=== PATIENT | male | born 1990 | race Caucasian/White ===

== ENCOUNTER 2017-01-27 16:14 | Emergency (ER) | payer OTHER ==
[2017-01-27 17:13] LABS: CALCIUM 9.2 mg/dL (8.5-10.1); CARBON DIOXIDE 25.7 mmol/L (21-32); CHLORIDE SERUM 99 mmol/L (98-107); GFR1 > 60 mL/min; GLUCOSE SERUM 107 mg/dL (74-106); POTASSIUM SERUM 3.6 mmol/L (3.5-5.1); SODIUM SERUM 136 mmol/L (136-145)
[2017-01-27 17:18] LABS: ALBUMIN 3.4 g/dL (3.4-5.0); ALKALINE PHOSPHATASE 73 U/L (46-116); ALT/SGPT 30 U/L (16-63); AST/SGOT 22 U/L (15-37); BILIRUBIN TOTAL 0.75 mg/dL (0.20-1.00)
[2017-01-27 17:19] LABS: TOTAL PROTEIN, SERUM 8.4 g/dL (6.4-8.2)
[2017-01-27 17:20] LABS: PLATELET COUNT 216 x10^3mcL (130-400)
[2017-01-27 17:57] LABS: BAND NEUTROPHIL 8 % (0-10); BASOPHIL 0 % (0-2); MONOCYTE 9 % (0-7); SEGMENTED NEUTROPHILS 72 % (37-75)
[2017-01-27 18:40] VITALS: BP 126/80
== END 2017-01-27 18:40 | disposition home or self-care (01) ==
LOC: ED 16:14
PROVIDERS: Emergency Medicine
DX: J02.9 Acute pharyngitis, unspecified (principal); R51 Headache; R11.2 Nausea with vomiting, unspecified
CPT/HCPCS: 86788; 86789; J0295; J3010; Q0162

== ENCOUNTER 2017-02-03 11:29 | Emergency (ER) | payer OTHER ==
[~2017-02-03] VITALS: Ht 180.3 cm; Wt 92.1 kg
[2017-02-03 14:27] LABS: BASOPHIL % 0.3 % (0-2); RED CELL DISTRIBUTION WIDTH 12.9 % (11.5-14.5)
[2017-02-03 14:33] LABS: CALCIUM 9.5 mg/dL (8.5-10.1); CARBON DIOXIDE 28.4 mmol/L (21-32); CHLORIDE SERUM 103 mmol/L (98-107); CREATININE SERUM 0.9 mg/dL (0.7-1.3); GFR1 > 60 mL/min; GLUCOSE SERUM 102 mg/dL (74-106); POTASSIUM SERUM 3.4 mmol/L (3.5-5.1); SODIUM SERUM 139 mmol/L (136-145)
[2017-02-03 14:38] LABS: ALKALINE PHOSPHATASE 67 U/L (46-116); ALT/SGPT 34 U/L (16-63); AMYLASE 85 U/L (25-115); AST/SGOT 28 U/L (15-37); BILIRUBIN TOTAL 0.53 mg/dL (0.20-1.00); LIPASE 135 IU/L (73-393)
[2017-02-03 14:49] LABS: ALBUMIN 3.2 g/dL (3.4-5.0); TOTAL PROTEIN, SERUM 8.7 g/dL (6.4-8.2)
[2017-02-03 14:54] LABS: PLATELET COUNT 441 x10^3mcL (130-400)
[2017-02-03 15:33] VITALS: BP 137/82
== END 2017-02-03 15:33 | disposition home or self-care (01) ==
LOC: ED 11:29
PROVIDERS: Emergency Medicine
DX: K80.50 Calculus of bile duct without cholangitis or cholecystitis without obstruction (principal)
CPT/HCPCS: 83880; J1885

== ENCOUNTER 2017-04-23 21:48 | Inpatient (IN) | payer OTHER ==
[~2017-04-23] VITALS: Ht 180.3 cm; Wt 93.9 kg
--- NOTE | 2017-04-23 22:22 | NUR ---
AWAITING BED AVAIL. NO S/S OF RESP DISTRESS. PT IS FULLY AAOX4 WITH CLEAR SKIN SIGNS
--- NOTE | 2017-04-23 23:01 | NUR ---
REC'D A 26/M IN [facility]TH[facility] WITH C/O CHEST PAIN AND SOB SINCE WEDNESDAY. PT STS THE SOB STARTED FIRST THEN VOMITED, AND THEN CHEST PAIN. PT DESCRIBES THE PAIN CONSTANT, PRESSURE LIKE, MID-STERNAL AND NONRADIATING. PT STARTED A NEW LABOR INTENSIVE JOB WEDNESDAY AND THOUGHT THE PAIN WOULD GO AWAY AFTER "I SLEPT BUT IT DID NOT". PT AAOX4, RSEP EVEN AND SLIGHTLY LABORED. CLEAR SOUNDS EDWIGE. ON CM, SPOUSE AT BEDSIDE. CALL LIGHT WITHIN REACH, WILL CONTINUE TO MONITOR.
--- NOTE | 2017-04-23 23:45 | NUR ---
INITIATED 1000ML BOLUS; MEDICATED PT FOR PAIN. PLEASE SEE EMAR.
[2017-04-23 23:47] LABS: BASOPHIL % 0.2 % (0-2); PLATELET COUNT 329 x10^3mcL (130-400); RED CELL DISTRIBUTION WIDTH 14.5 % (11.5-14.5)
[2017-04-24 00:15] LABS: CALCIUM 10.1 mg/dL (8.5-10.1); CARBON DIOXIDE 19.9 mmol/L (21-32); POTASSIUM SERUM 3.8 mmol/L (3.5-5.1)
[2017-04-24 00:19] LABS: ALBUMIN 4.8 g/dL (3.4-5.0); BILIRUBIN TOTAL 0.8 mg/dL (0.20-1.00)
[2017-04-24 00:20] LABS: TOTAL PROTEIN, SERUM 9.9 g/dL (6.4-8.2)
--- NOTE | 2017-04-24 00:55 | NUR ---
PT SITTING ON EDGE OF GURENY ON CELL PHINE, NS INFUSING PER MD ORDERS. NO DISTRESS NOTED
--- NOTE | 2017-04-24 02:06 | NUR ---
REPORT GIVEN TO LUIS MARTINES TO ASSUME CARE OF THE PT.
[2017-04-24 02:28] VITALS: BP 156/92
--- NOTE | 2017-04-24 02:44 | NUR ---
PATIENT RECEIVED FROM ED VIA GUERNEY ASSITED BY NURSE AND SIGNIFICANT OTHER. PATIENT DENIES CHEST PAIN. PATIENT DENIES SOB. PATIENT DENIES NAUSEA AND VOMITING AT THIS TIME. IV SITE TO LEFT AC, PATENT AND INTACT. IV FLUID STARTED PER DOCTOR'S ORDER. PATIENT ORIENTED TO ROOM AND CALL LIGHT. BED IN LOWEST POSITION. CALL LIGHT WITHIN REACH. WILL CONTINUE TO MONITOR.
[2017-04-24 03:18] LABS: CHOLESTEROL/HDL RATIO 2.6; MAGNESIUM 2.7 mg/dL (1.8-2.4); PHOSPHOROUS 3.3 mg/dL (2.5-4.9)
[2017-04-24 03:20] LABS: T4(THYROXINE) 11.3 ug/dL (4.7-13.3)
[2017-04-24 03:24] LABS: T3 TOTAL 1.29 ng/mL
[2017-04-24 03:43] LABS: BASOPHIL % 0.3 % (0-2); PLATELET COUNT 290 x10^3mcL (130-400); RED CELL DISTRIBUTION WIDTH 14.4 % (11.5-14.5)
[2017-04-24 03:56] LABS: CALCIUM 8.7 mg/dL (8.5-10.1); CARBON DIOXIDE 22.1 mmol/L (21-32); CREATININE SERUM 1.7 mg/dL (0.7-1.3); MAGNESIUM 2.3 mg/dL (1.8-2.4); PHOSPHOROUS 3.9 mg/dL (2.5-4.9); POTASSIUM SERUM 3.5 mmol/L (3.5-5.1)
[2017-04-24 04:31] LABS: FREE T4 1.37 ng/dL (0.76-1.46)
--- NOTE | 2017-04-24 05:04 | NUR ---
PATIENT RESTED SINCE ARRIVING ON UNIT. NO C/O CHEST PAIN, NAUSEA, VOMITING. SAFETY AND COMFORT MEASURES MAINTAINED. BED IN LOWEST POSITION. CALL LIGHT WITHIN REACH. WILL CONTINUE TO MONITOR AND ENDORSE TO NEXT SHIFT NURSE.
[2017-04-24 05:24] VITALS: BP 134/85
--- NOTE | 2017-04-24 07:34 | NUR ---
ALERT AND ORIENTED. TELE #[id number], NSR, HR 82. NO EDEMA NOTED. LUNG SOUNDS CLEAR, 2L NC, NO SOB NOTED. LBM 04/23, REPORTED NORMAL FOR PATIENT. REPORTS NO DIFFICULTY WITH VOIDING. MOVES ALL EXTREMETIES. SKIN WARM AND DRY. DENIES ANY PAIN AT THIS TIME. IV LAC, NS @120.
[2017-04-24 09:13] VITALS: BP 115/67
--- NOTE | 2017-04-24 11:26 | NUR ---
DR CHASE SAW PATIENT. PATIENT TO HAVE ESOPHAGRAM/BARIUM SWALLOW TODAY.
[2017-04-24 13:40] VITALS: BP 135/86
--- NOTE | 2017-04-24 15:17 | NUR ---
PER DR HOLLOWAY RADIOLOGIST, SUGGESTING FOR CT CHEST LIMITED FOR ESOPHAGRAM WITH AND WITHOUT ORAL CONTRAST. DR CHASE PAGED.
--- NOTE | 2017-04-24 16:58 | NUR ---
DR HOLLOWAY PAGED REGARDING ESOPHAGRAM/CT CHEST. TELEPHONE ORDER RECEIVED, OKAY TO ORDER CT CHEST LIMITED WITH OR WITHOUT ORAL CONTRAST PER RADIOLOGIST SUGGESTION FOR ESOPHAGRAM. RADIOLOGIST DEPT MADE AWARE.
--- NOTE | 2017-04-24 17:22 | NUR ---
REPORTS NO CHEST PAIN OR NAUSEA AT THIS TIME, SITTING UP IN BED, VISITOR AT BEDSIDE
--- NOTE | 2017-04-24 17:30 | NUR ---
PATIENT GOING TO RADIOLOGY DEPT FOR CT CHEST VIA WHEELCHAIR.
[2017-04-24 17:47] VITALS: BP 136/81
--- NOTE | 2017-04-24 18:57 | NUR ---
DENIES ANY CHEST PAIN N/V AT THIS TIME, SITTING UP IN BED, NO DISTRESS NOTED. VISITOR AT BEDSIDE
[2017-04-24 19:09] LABS: UA SPECIFIC GRAVITY >=1.030 (1.005-1.035); microscopic required? YES; urine erythrocyte NEGATIVE (NEGATIVE)
[2017-04-24 19:18] LABS: AMPHETAMINE QUAL UR NONE DETECTED (NEG <=1000)
--- NOTE | 2017-04-24 19:43 | NUR ---
PATIENT ALERT AND ORIENTED ON BED, WITH TELEVISION ON. PATIENT IS ON 02 2L NASAL CANNULA, COMPLAINTS OF CHEST PAIN, SHOOTING IN NATURE ON PAIN SCALE 7 OUT OF 10. MORPHINE GIVEN FOR PAIN. PATIENT IS SELF AMBULATORY. NO EDEMA NOTED. NO SHORTNESS OF BREATH NOTED. PATIENT STILL NPO AT THIS TIME. FIANCE AT BED SIDE. CALL LIGHT WITHIN REACH.
[2017-04-24 21:19] VITALS: BP 128/84
--- NOTE | 2017-04-24 22:13 | NUR ---
SPOKE WITH DR HOLLOWAY FROM RADIOLOGY, PER DR HOLLOWAY PT ALREADY HAD CT ESOPHARGRAM DONE THIS AFTER AND THE TEST IS NEGATIVE SO NO NEED FOR XR ESOPHARGRAM AT THIS TIME, DR YOUNGBLOOD MADE AWARE AND PER DR YOUNGBLOOD PT MAY HAVE CLEAR LIQUID DIET AT THIS TIME TIL MIDNIGHT.
--- NOTE | 2017-04-25 01:31 | NUR ---
MADE ROUNDS. PATIENT AWAKE AND LAYING IN BED WATCHING TV. NO DISTRESS.
[2017-04-25 05:37] VITALS: BP 132/86
--- NOTE | 2017-04-25 06:34 | NUR ---
PATIENT SLEPT WELL THROUGHOUT THE NIGHT. HE IS CURRENTLY AWAKE AND WATCHING TV. PT COMPLAINS OF RASH/HIVE FORMING ON THE LEFT CHEEK AND MOUTH AREA. STATES THAT IT IS ITCHY AND BEGAN YESTERDAY WHEN HE WAS ADMITTED. IV IS INFUSING WELL. CALL LIGHT WITHIN REACH.
[2017-04-25 06:41] LABS: BASOPHIL % 0.3 % (0-2); PLATELET COUNT 204 x10^3mcL (130-400)
[2017-04-25 06:53] LABS: CALCIUM 8.1 mg/dL (8.5-10.1); CHLORIDE SERUM 107 mmol/L (98-107); CREATININE SERUM 1.1 mg/dL (0.7-1.3); GFR1 > 60 mL/min; GLUCOSE SERUM 91 mg/dL (74-106); PHOSPHOROUS 3.3 mg/dL (2.5-4.9); POTASSIUM SERUM 3.7 mmol/L (3.5-5.1); SODIUM SERUM 140 mmol/L (136-145)
--- NOTE | 2017-04-25 07:18 | NUR ---
RECEIVED PATIENT AWAKE/ALERT IN BED NO DISTRESS NOTED, STATE PAIN IN THE CHEST AREA 10; REMIND PATIENT NPO X MEDS. IV INTACT AND INFUSING. POC EXPLAINED. CONT TO MONITOR.
[2017-04-25 07:50] LABS: RED CELL DISTRIBUTION WIDTH 14.7 % (11.5-14.5)
--- NOTE | 2017-04-25 08:03 | NUR ---
CALL GI LAB TO REPORT CT CHEST RESULT; PER FIDENCIO RANDALL IN PROCEDURE; LEFT MESSAGE FOR .
--- NOTE | 2017-04-25 08:35 | NUR ---
PATIENT SAT UP AT THE SIDE OF BED, STATE PAIN IS OKAY. DUE MEDS GIVEN. NEEDS ANTICIPATED.
[2017-04-25 09:21] VITALS: BP 121/80
--- NOTE | 2017-04-25 12:17 | NUR ---
PAGE DR HOLLOWAY FOR ORDER PATIENT REQUEST FOODS.
--- NOTE | 2017-04-25 12:34 | NUR ---
DR. HOLLOWAY CALL BACK INFORM MD NEED DIET ORDER.
[2017-04-25] MEDS ORDERED: CORTISONE28 GM TP ×2 (12:42→12:44)
[2017-04-25 12:53] VITALS: BP 121/78
--- NOTE | 2017-04-25 12:57 | NUR ---
patient sat up in bed lunch on table no complaints. Inform patient MD discharge home and paper work will be ready in few hours. Patient verbalize understand.
[2017-04-25 13:19] VITALS: BP 121/78
--- NOTE | 2017-04-25 14:34 | NUR ---
Patient sat at the side of bed no complaints, discharge instructions and prescription explained; instruct patient to call Dr. Jessica jurado for f/u appt on Wednesday. IV dc'd and intact. Doctor note for time off given to patient. Patient getting dress and wait for potato picker. Instruct to call when family arrive.
== END 2017-04-25 16:00 | disposition home or self-care (01) | DRG 143 ==
LOC: ED 21:48 → DU 04-24 01:26
PROVIDERS: Emergency Medicine; ADMIT Family Medicine
DX: J98.2 Interstitial emphysema (principal); K22.3 Perforation of esophagus; F12.10 Cannabis abuse, uncomplicated; Z53.29 Procedure and treatment not carried out because of patient's decision for other reasons
CPT/HCPCS: 83880; 84439; J1885; J2270; J2405; J7030; Q0092

== ENCOUNTER 2017-07-11 01:19 | Emergency (ER) | payer OTHER ==
[~2017-07-11 01:19] MED LIST: CORTISONE28 GM TP
[2017-07-11 06:18] VITALS: BP 122/73
== END 2017-07-11 06:18 | disposition home or self-care (01) ==
LOC: ED 01:19
DX: S62.325A Displaced fracture of shaft of fourth metacarpal bone, left hand, initial encounter for closed fracture (principal); X58.XXXA Exposure to other specified factors, initial encounter; Y93.89 Activity, other specified; Y92.89 Other specified places as the place of occurrence of the external cause; Y99.8 Other external cause status
CPT/HCPCS: 90714; J1885; J2270; Q0092